=== PATIENT | male | born 2000 | race African-American/Black ===

== ENCOUNTER 2018-12-13 19:16 | Emergency (ER) | payer BC, OTHER ==
[2018-12-13 19:26] VITALS: BP 117/63; PULSE 86; TEMP 98.4; BMI 30.1
[2018-12-13] MEDS ORDERED: IBUPROFEN 600 MG TABLET (FP) PO ONE ×2 (19:29→20:07)
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
== END 2018-12-13 20:35 | disposition home or self-care (01) ==
LOC: FER 19:16
DX: S97.82XA Crushing injury of left foot, initial encounter (principal); W20.8XXA Other cause of strike by thrown, projected or falling object, initial encounter; Y93.89 Activity, other specified; Y92.410 Unspecified street and highway as the place of occurrence of the external cause; Z87.891 Personal history of nicotine dependence
CPT/HCPCS: 73630-TC-LT; 99282-25

== ENCOUNTER 2019-05-20 19:09 | Emergency (ER) | payer OTHER ==
[2019-05-20 19:28] VITALS: BP 122/77; PULSE 99; TEMP 98.6; BMI 29.7
[2019-05-20] MEDS ORDERED: CIPROFLOXACIN 500 MG TABLET (RESTRICTED TO ID) PO ONE (21:12)
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
[2019-05-20] MEDS ORDERED: CIPROFLOXACIN 250 MG TABLET (RESTRICTED TO ID) PO ONE (21:19)
== END 2019-05-20 21:22 | disposition home or self-care (01) ==
LOC: FER 19:09
PROC: 0T2BX0Z Change Drainage Device in Bladder, External Approach (ICD-10-PCS; principal; 2019-05-20)
DX: N30.90 Cystitis, unspecified without hematuria (principal); Z46.6 Encounter for fitting and adjustment of urinary device
CPT/HCPCS: 81003; 81015; 87086; 87186; 99283-25